=== PATIENT | male | born 1955 | race Caucasian/White ===

== ENCOUNTER 2023-12-07 22:40 | Inpatient (IN) | payer OTHER ==
[2023-12-08 00:34] LABS: #Basophils 0.1 thou/uL (0.0-0.2); #Eosinphils 0.3 thou/uL (0.0-0.7); #Monocytes 1.1 thou/uL (0.11-0.59); #Neutrophils 7.4 thou/uL (1.40-6.50); %Basophils 0.6 % (0.0-1.0); %Eosinophils 2.2 % (0.0-10.0); %Lymphocytes 21.9 % (21.0-51.0); %Monocytes 9.2 % (0.0-10.0); %Neutrophils 64.8 % (42.0-75.0); Hematocrit 41.5 % (42.0-52.0); Hemoglobin 13.3 g/dL (14.0-18.0); Mean Corpuscular Hemoglobin 29.9 pg (27.0-31.0); Mean Corpuscular Volume 93.3 fl (78.0-98.0); Mean Platelet Volume 8.4 fL (7.4-10.4); Platelet Count 313 10x3/uL (130-400); RBC Distribution Width 12.9 % (11.5-14.5); Red Blood Cell (RBC) Count 4.45 mill/uL (4.70-6.10); White Blood Cell (WBC) Count 11.4 10x3/uL (4.8-10.8)
[2023-12-08 00:45] LABS: ALT (SGPT) 8 U/L (8-55); AST (SGOT) 18 U/L (5-34); Albumin 3.4 g/dL (3.4-4.8); Alkaline Phosphatase 66 U/L (40-110); Anion Gap 15 mmol/L (10-20); BUN (Urea Nitrogen) 13 mg/dL (8.4-25.7); Bilirubin, Total 0.9 mg/dL (0.2-1.2); Calc. Creatinine Clearance 0 mL/min (70-130); Carbon Dioxide 24 mmol/L (23-31); Chloride 103 mmol/L (98-107); Estimated GFR 77; Globulin 4.3 g/dL (2.4-3.5); Glucose 85 mg/dL (80-115); Potassium 4.4 mmol/L (3.5-5.1); Protein, Total 7.7 g/dL (5.8-8.1); Sodium 138 mmol/L (136-145)
[2023-12-08] MEDS ORDERED: Piperacillin/Tazobactam 3.375 GM VIAL ONE (00:49)
[2023-12-08] MEDS ORDERED: Sodium Chloride 0.9% 100 ML ONE (00:50)
[2023-12-08] MEDS ORDERED: Acetaminophen 500 MG TAB ONE ×2 (01:31→01:35)
[2023-12-08] MEDS ORDERED: Vancomycin 1 GM/200 ML (FROZEN) BAG ONE (02:18)
[2023-12-08] MEDS ORDERED: Ondansetron PF 4 MG/2 ML Vial IVP PRN (04:59)
[2023-12-08] MEDS ORDERED: Acetaminophen 650 MG Suppository PR PRN (04:59)
[2023-12-08] MEDS ORDERED: Ondansetron ODT 4 MG TAB PO PRN (04:59)
[2023-12-08] MEDS ORDERED: Morphine 4 MG/ML VIAL SLOW IVP PRN (05:47)
[2023-12-08] MEDS: Sodium Chloride 0.9% 1,000 ML IV SCH ×2 (06:37→17:30)
[2023-12-08 06:53] VITALS: BMI 22.1
[2023-12-08] MEDS: Enoxaparin 40 MG (0.4 mL) SYRINGE SC SCH (07:28)
[2023-12-08] MEDS ORDERED: Vancomycin HCl 500 MG in Sodium Chloride 0.9% 100 ML IVPB SCH (07:30)
[2023-12-08] MEDS: Acetaminophen 325 MG TAB PO PRN (08:56)
[2023-12-08] MEDS: Cefepime 2 GM in Sodium Chloride 0.9% 100 ML IVPB SCH ×2 (08:56→20:16)
[2023-12-08] MEDS ORDERED: FLU VACC QS2023(65UP)/MF59C/PF 60 MCG/0.5 ML SYRINGE IM ONE (11:15)
[2023-12-08] MEDS: HYDROcodone/Acetaminophen 7.5/325 mg Tablet PO PRN ×3 (13:09→23:09)
[2023-12-08] MEDS ORDERED: Morphine 4 MG/ML VIAL SLOW IVP SCH (20:00)
[2023-12-08] MEDS: Nystatin Ointment 15 GM TUBE TOP SCH (20:17)
[2023-12-09] MEDS: Vancomycin (BATCH) 1.5 GM in Premix 1 BAG IVPB SCH (03:10)
[2023-12-09] MEDS: HYDROcodone/Acetaminophen 7.5/325 mg Tablet PO PRN ×5 (03:12→22:00)
[2023-12-09 05:19] LABS: #Basophils 0.1 thou/uL (0.0-0.2); #Eosinphils 0.2 thou/uL (0.0-0.7); #Monocytes 1.1 thou/uL (0.11-0.59); #Neutrophils 5.8 thou/uL (1.40-6.50); %Basophils 0.7 % (0.0-1.0); %Eosinophils 2.7 % (0.0-10.0); %Lymphocytes 18.7 % (21.0-51.0); %Monocytes 12.7 % (0.0-10.0); %Neutrophils 64.3 % (42.0-75.0); Hematocrit 38.5 % (42.0-52.0); Hemoglobin 11.8 g/dL (14.0-18.0); Mean Corpuscular HGB CONC 30.6 g/dL (32.0-36.0); Mean Corpuscular Hemoglobin 29.4 pg (27.0-31.0); Mean Platelet Volume 8.4 fL (7.4-10.4); Platelet Count 291 10x3/uL (130-400); RBC Distribution Width 12.9 % (11.5-14.5); Red Blood Cell (RBC) Count 4.01 mill/uL (4.70-6.10)
[2023-12-09] MEDS: Morphine 4 MG/ML VIAL SLOW IVP PRN (06:32)
[2023-12-09 06:44] LABS: Anion Gap 13 mmol/L (10-20); BUN (Urea Nitrogen) 10 mg/dL (8.4-25.7); Calc. Creatinine Clearance 101 mL/min (70-130); Calcium 8.3 mg/dL (7.8-10.44); Carbon Dioxide 26 mmol/L (23-31); Chloride 102 mmol/L (98-107); Estimated GFR 97; Glucose 94 mg/dL (80-115); Potassium 4.5 mmol/L (3.5-5.1); Sodium 136 mmol/L (136-145)
[2023-12-09] MEDS: Cefepime 2 GM in Sodium Chloride 0.9% 100 ML IVPB SCH ×2 (08:48→22:03)
[2023-12-09] MEDS: Enoxaparin 40 MG (0.4 mL) SYRINGE SC SCH (08:49)
[2023-12-09] MEDS: Nystatin Ointment 15 GM TUBE TOP SCH ×2 (08:49→22:44)
[2023-12-09] MEDS ORDERED: Furosemide 40 MG TAB PO SCH (17:15)
[2023-12-09] MEDS ORDERED: diphenhydrAMINE 25 MG CAP PO SCH (17:15)
[2023-12-10] MEDS: diphenhydrAMINE 25 MG CAP PO PRN ×2 (01:32→15:13)
[2023-12-10] MEDS: HYDROcodone/Acetaminophen 7.5/325 mg Tablet PO PRN ×5 (02:03→23:16)
[2023-12-10 03:56] LABS: #Basophils 0.1 thou/uL (0.0-0.2); #Eosinphils 0.2 thou/uL (0.0-0.7); #Monocytes 1.2 thou/uL (0.11-0.59); #Neutrophils 5.9 thou/uL (1.40-6.50); %Basophils 0.9 % (0.0-1.0); %Eosinophils 2.4 % (0.0-10.0); %Lymphocytes 16.8 % (21.0-51.0); %Monocytes 13.3 % (0.0-10.0); %Neutrophils 65.8 % (42.0-75.0); Hematocrit 39.1 % (42.0-52.0); Hemoglobin 12.1 g/dL (14.0-18.0); Mean Corpuscular HGB CONC 30.9 g/dL (32.0-36.0); Mean Corpuscular Hemoglobin 29.7 pg (27.0-31.0); Mean Corpuscular Volume 95.8 fl (78.0-98.0); Mean Platelet Volume 8.8 fL (7.4-10.4); Platelet Count 298 10x3/uL (130-400); RBC Distribution Width 12.8 % (11.5-14.5); Red Blood Cell (RBC) Count 4.08 mill/uL (4.70-6.10); White Blood Cell (WBC) Count 8.9 10x3/uL (4.8-10.8)
[2023-12-10 04:15] LABS: Anion Gap 13 mmol/L (10-20); BUN (Urea Nitrogen) 11 mg/dL (8.4-25.7); Calc. Creatinine Clearance 84 mL/min (70-130); Carbon Dioxide 33 mmol/L (23-31); Chloride 98 mmol/L (98-107); Estimated GFR 85; Glucose 105 mg/dL (80-115); Potassium 4.6 mmol/L (3.5-5.1); Sodium 139 mmol/L (136-145)
[2023-12-10] MEDS: Morphine 4 MG/ML VIAL SLOW IVP PRN ×2 (04:49→20:12)
[2023-12-10] MEDS ORDERED: Vancomycin (BATCH) 1.5 GM in Premix 1 BAG IVPB SCH (05:00)
[2023-12-10] MEDS: Vancomycin (BATCH) 1.5 GM in Premix 1 BAG IVPB SCH (07:28)
[2023-12-10] MEDS: Cefepime 2 GM in Sodium Chloride 0.9% 100 ML IVPB SCH ×2 (09:02→20:13)
[2023-12-10] MEDS: Potassium Chloride 20 MEQ TAB PO SCH (09:02)
[2023-12-10] MEDS: Enoxaparin 40 MG (0.4 mL) SYRINGE SC SCH (09:02)
[2023-12-10] MEDS: Allopurinol 100 MG TAB PO SCH (09:03)
[2023-12-10] MEDS: Hydrochlorothiazide 25 MG TAB PO SCH (09:03)
[2023-12-10] MEDS: Furosemide 40 MG TAB PO SCH ×2 (09:05→13:41)
[2023-12-10] MEDS: Carvedilol 6.25 MG TAB PO SCH ×2 (09:06→20:17)
[2023-12-10] MEDS: Nystatin Ointment 15 GM TUBE TOP SCH ×2 (09:06→20:18)
[2023-12-10] MEDS ORDERED: Iopamidol-370 76% 500 ML MDV (1 ML CHARGE) ONE (12:45)
[2023-12-11] MEDS: diphenhydrAMINE 25 MG CAP PO PRN ×2 (00:47→16:37)
[2023-12-11] MEDS: HYDROcodone/Acetaminophen 7.5/325 mg Tablet PO PRN ×4 (06:21→21:35)
[2023-12-11] MEDS: Cefepime 2 GM in Sodium Chloride 0.9% 100 ML IVPB SCH ×2 (08:53→21:32)
[2023-12-11] MEDS: Enoxaparin 40 MG (0.4 mL) SYRINGE SC SCH (08:53)
[2023-12-11] MEDS: Potassium Chloride 20 MEQ TAB PO SCH (08:53)
[2023-12-11] MEDS: Hydrochlorothiazide 25 MG TAB PO SCH (08:54)
[2023-12-11] MEDS: Furosemide 40 MG TAB PO SCH ×2 (08:54→13:32)
[2023-12-11] MEDS: Carvedilol 6.25 MG TAB PO SCH ×2 (08:54→21:31)
[2023-12-11] MEDS: Nystatin Ointment 15 GM TUBE TOP SCH ×2 (08:55→21:32)
[2023-12-11] MEDS: Allopurinol 100 MG TAB PO SCH (08:55)
[2023-12-11] MEDS ORDERED: Sodium Chloride 0.65% Nasal 44 ML BOT EA NARE PRN (12:58)
[2023-12-11] MEDS ORDERED: Albuterol 200 PUFF (6.7GM INHALER) INH PRN (12:58)
[2023-12-11] MEDS: Morphine 4 MG/ML VIAL SLOW IVP PRN (13:29)
[2023-12-11] MEDS ORDERED: Ipratropium Bromide 0.03% Nasal Inhaler 30 ml Bottle EA NARE SCH (13:30)
[2023-12-11] MEDS: Ipratropium Bromide 0.03% Nasal Inhaler 30 ml Bottle EA NARE SCH (21:32)
[2023-12-12] MEDS: HYDROcodone/Acetaminophen 7.5/325 mg Tablet PO PRN ×5 (01:39→21:38)
[2023-12-12] MEDS: Enoxaparin 40 MG (0.4 mL) SYRINGE SC SCH (08:13)
[2023-12-12] MEDS: Carvedilol 6.25 MG TAB PO SCH ×2 (08:14→21:33)
[2023-12-12] MEDS: Hydrochlorothiazide 25 MG TAB PO SCH (08:14)
[2023-12-12] MEDS: Cefepime 2 GM in Sodium Chloride 0.9% 100 ML IVPB SCH ×2 (08:14→21:32)
[2023-12-12] MEDS: Furosemide 40 MG TAB PO SCH ×2 (08:14→14:12)
[2023-12-12] MEDS: Potassium Chloride 20 MEQ TAB PO SCH (08:14)
[2023-12-12] MEDS: Allopurinol 100 MG TAB PO SCH (08:14)
[2023-12-12] MEDS: diphenhydrAMINE 25 MG CAP PO PRN ×3 (09:36→22:45)
[2023-12-12] MEDS: Nystatin Ointment 15 GM TUBE TOP SCH ×2 (09:39→21:33)
[2023-12-12] MEDS: Ipratropium Bromide 0.03% Nasal Inhaler 30 ml Bottle EA NARE SCH ×2 (17:05→22:44)
[2023-12-12] MEDS ORDERED: Famotidine 20 MG TAB PO SCH (17:15)
[2023-12-12] MEDS: Artificial Tear Sol 15 ML BOT EA EYE PRN (22:40)
[2023-12-13] MEDS: HYDROcodone/Acetaminophen 7.5/325 mg Tablet PO PRN ×4 (05:01→20:23)
[2023-12-13] MEDS: Potassium Chloride 20 MEQ TAB PO SCH (10:04)
[2023-12-13] MEDS: Carvedilol 6.25 MG TAB PO SCH ×2 (10:04→20:22)
[2023-12-13] MEDS: Famotidine 20 MG TAB PO SCH ×2 (10:04→20:24)
[2023-12-13] MEDS: Allopurinol 100 MG TAB PO SCH (10:04)
[2023-12-13] MEDS: Furosemide 40 MG TAB PO SCH ×2 (10:04→13:04)
[2023-12-13] MEDS: Hydrochlorothiazide 25 MG TAB PO SCH (10:04)
[2023-12-13] MEDS: Enoxaparin 40 MG (0.4 mL) SYRINGE SC SCH (10:05)
[2023-12-13] MEDS: Nystatin Ointment 15 GM TUBE TOP SCH ×2 (10:05→20:24)
[2023-12-13] MEDS: Ipratropium Bromide 0.03% Nasal Inhaler 30 ml Bottle EA NARE SCH ×2 (10:05→20:28)
[2023-12-13] MEDS: Cefepime 2 GM in Sodium Chloride 0.9% 100 ML IVPB SCH ×2 (10:05→20:24)
[2023-12-13] MEDS: Acetaminophen 325 MG TAB PO PRN (15:52)
[2023-12-13] MEDS: diphenhydrAMINE 25 MG CAP PO PRN (20:23)
[2023-12-14] MEDS: HYDROcodone/Acetaminophen 7.5/325 mg Tablet PO PRN ×4 (02:10→22:22)
[2023-12-14] MEDS: Cefepime 2 GM in Sodium Chloride 0.9% 100 ML IVPB SCH (08:55)
[2023-12-14] MEDS: Carvedilol 6.25 MG TAB PO SCH ×2 (08:56→20:40)
[2023-12-14] MEDS: Acetaminophen 325 MG TAB PO PRN ×2 (08:56→18:16)
[2023-12-14] MEDS: Allopurinol 100 MG TAB PO SCH (08:57)
[2023-12-14] MEDS: Famotidine 20 MG TAB PO SCH ×2 (08:57→20:37)
[2023-12-14] MEDS: Hydrochlorothiazide 25 MG TAB PO SCH (08:57)
[2023-12-14] MEDS: Ipratropium Bromide 0.03% Nasal Inhaler 30 ml Bottle EA NARE SCH ×2 (08:57→20:44)
[2023-12-14] MEDS: Nystatin Ointment 15 GM TUBE TOP SCH ×2 (08:57→21:14)
[2023-12-14] MEDS: Potassium Chloride 20 MEQ TAB PO SCH (08:57)
[2023-12-14] MEDS: Enoxaparin 40 MG (0.4 mL) SYRINGE SC SCH (08:57)
[2023-12-14] MEDS: Cephalexin 250 MG CAP PO SCH ×3 (12:35→22:25)
[2023-12-14] MEDS: Ciprofloxacin 500 MG TAB PO SCH (20:37)
[2023-12-14] MEDS: Artificial Tear Sol 15 ML BOT EA EYE PRN (20:44)
[2023-12-14] MEDS: diphenhydrAMINE 25 MG CAP PO PRN (22:22)
[2023-12-15] MEDS: HYDROcodone/Acetaminophen 7.5/325 mg Tablet PO PRN ×2 (04:58→09:29)
[2023-12-15] MEDS: Cephalexin 250 MG CAP PO SCH ×2 (05:01→12:44)
[2023-12-15] MEDS: Ciprofloxacin 500 MG TAB PO SCH (05:01)
[2023-12-15] MEDS: Famotidine 20 MG TAB PO SCH (09:26)
[2023-12-15] MEDS: Allopurinol 100 MG TAB PO SCH (09:26)
[2023-12-15] MEDS: Potassium Chloride 20 MEQ TAB PO SCH (09:29)
[2023-12-15] MEDS: Hydrochlorothiazide 25 MG TAB PO SCH (09:29)
[2023-12-15] MEDS: Acetaminophen 325 MG TAB PO PRN (09:30)
[2023-12-15] MEDS: Enoxaparin 40 MG (0.4 mL) SYRINGE SC SCH (09:31)
[2023-12-15] MEDS: Carvedilol 6.25 MG TAB PO SCH (09:32)
[2023-12-15] MEDS: Ipratropium Bromide 0.03% Nasal Inhaler 30 ml Bottle EA NARE SCH (09:33)
[2023-12-15] MEDS: Nystatin Ointment 15 GM TUBE TOP SCH (09:33)
[2023-12-15 13:06] VITALS: BP 121/74; TEMP 97.5
== END 2023-12-15 13:02 | DRG 603 ==
LOC: ERS 22:40 → EEVIPCON 12-08 04:14 → SURG A 12-08 04:14 → OBSVTOIN 12-09 17:27 → T4-B 12-11 00:19
PROVIDERS: ADMIT Student in an Organized Health Care Education/Training Program; ATTEND Family Medicine
DX: L03.115 Cellulitis of right lower limb (principal); M10.9 Gout, unspecified; J44.9 Chronic obstructive pulmonary disease, unspecified; Z95.5 Presence of coronary angioplasty implant and graft; Z98.890 Other specified postprocedural states; Z79.899 Other long term (current) drug therapy; B96.5 Pseudomonas (aeruginosa) (mallei) (pseudomallei) as the cause of diseases classified elsewhere; M32.9 Systemic lupus erythematosus, unspecified; D72.829 Elevated white blood cell count, unspecified; I50.9 Heart failure, unspecified; I11.0 Hypertensive heart disease with heart failure; Z87.891 Personal history of nicotine dependence; M35.00 Sjogren syndrome, unspecified; B95.61 Methicillin susceptible Staphylococcus aureus infection as the cause of diseases classified elsewhere
CPT/HCPCS: 36415; 80048; 80053; 80202; 83605; 85025; 86140; 87040; 87081; 93005; 93010; 96365; 96366; 96367; 96372; 96375; 96376; 97139; G0378; J0692; J1650; J2270; J2543; J3370; J3370-JW; J3490; J7050; Q9967